=== PATIENT | male | born 1955 | race Caucasian/White ===

== ENCOUNTER → 2019-12-29 | Day surgery (SDC) | payer MEDICARE ==
[2019-12-27 12:01] VITALS: BMI 22.8
[~2019-12-29] MED LIST: LACTATED RINGERS 1,000 ML IV SCH; LIDOCAINE 1% (10MG/ML) FOR IV START INTRADERMA ONE; PROPOFOL 10 MG/ML 20 ML VIAL IV ONE
[2019-12-29 09:19] VITALS: TEMP 98.4
--- NOTE | 2019-12-29 11:22 | P.PCN ---
Date of Procedure: 12/29/19 Procedure(s) Performed: BRIEF HISTORY: Patient is a 64-year-old pleasant white male scheduled for an elective colonoscopy as a part of evaluation of chronic diarrhea for the last 1 year duration. Has bowel movements anywhere from 6-7 days and blood or mucus in the stool. PROCEDURE PERFORMED: Colonoscopy Random biopsies. PREOPERATIVE DIAGNOSIS:Chronic diarrhea of 1 year duration. IV sedation per Anesthesia. PROCEDURE: After informed consent was obtained, the patient, was brought into the endoscopy unit. IV sedation was administered by Anesthesia under continuous monitoring. Digital rectal examination was normal. Initially the Olympus CF-160 flexible video colonoscope was then inserted in the rectum, gradually advanced into the cecum without any difficulty. Careful examination was performed as the scope was gradually being withdrawn. Ileocecal valve and the appendiceal orifice were visualized and appeared normal. Prep wa fair. Mucosa of the cecum, ascending colon, transverse colon, descending colon, sigmoid colon, and rectum appeared normal. Retroflexion was performed in the rectum an a 2 internal hemorrhoids were seen. random biopsies were done from ascending and descending colon to rule out microscopic/collagenous colitis The patient tolerated the procedure well. IMPRESSION: Normal-appearing colon from rectum to cecum No evidence of colitis or colorectal neoplasia. Scattered sigmoid diverticulosis. Grade 2 internal hemorrhoids RECOMMENDATIONS: Findings of this examination were discussed with the patient as well as her family. He was advised to follow with the biopsy results. In the meantime he will continue with Bentyl daily 10 milligrams 3 times daily and he'll be seen in office in 6 weeks
[2019-12-29 11:25] VITALS: RESP 17
[2019-12-29 11:35] VITALS: BP 106/71; PULSE 75
== END ==
LOC: ORWHC2ENDO 08:57
PROVIDERS: ATTEND Internal Medicine Gastroenterology
DX: K64.1 Second degree hemorrhoids (principal); K57.30 Diverticulosis of large intestine without perforation or abscess without bleeding; K92.1 Melena; K58.9 Irritable bowel syndrome, unspecified; R29.810 Facial weakness; Z79.899 Other long term (current) drug therapy; F17.210 Nicotine dependence, cigarettes, uncomplicated; Z96.641 Presence of right artificial hip joint; Z98.890 Other specified postprocedural states
CPT/HCPCS: 88305; 45380; J2704

== ENCOUNTER → 2023-01-13 | Outpatient (CLI) | payer MEDICARE ==
--- NOTE | 2023-01-14 09:17 | MR ---
EXAMINATION TYPE: MR Prostate wo/w con DATE OF EXAM: 01/13/2023 9:37 AM COMPARISON: None. CLINICAL INDICATION:Male, 67 years old with history of R97.20 ELEVATED PSA; Elevated PSA. TECHNIQUE: Multi-planar, multi-sequence imaging of the pelvis is performed prior to and following the uncomplicated administration of bolus intravenous gadolinium. CONTRAST: 7 Gadavist Interpretive Criteria: PI-RADS v2.1 SERUM PSA: 5.5 on 12/08/2022. SURGICAL PATHOLOGY: No data available. FINDINGS: Prostatic dimensions: 5.2 x 6.4 x 3.7. cm. Ellipsoid Volume:64.47 (PSA density=0.09 ng/mL/mL) Limited evaluation of the right prostate gland secondary to susceptibility artifact. CENTRAL GLAND PERIPHERAL ZONE (PZ):(Central and Transition Zones/CZ+TZ): Multiple bilateral, heterogenous appearing hypertrophic stromal nodules, without suspicious lesion. M edian lobe hypertrophy with protrusion into the base of the bladder. (PI-RADS 2) PERIPHERAL ZONE (PZ): No evidence of masslike abnormality, or localized perfusional hypervascularity, to further suggest a focus of clinically significant prostate cancer. (PI-RADS 2) SEMINAL VESICLES (SV): Symmetric and unremarkable. PERIPROSTATIC TISSUES: Unremarkable. LYMPH NODES: No enlarged pelvic lymph node. REMAINING PELVIS: Scattered bladder diverticula are seen throughout the bladder hodge. Trabeculated bladder wall is als o present. No abnormal free or organized intrapelvic fluid collection. No pathologic bowel dilation or mural thickening. Colonic diverticula are present. No hernia visualized Right posterior lateral probable hemorrhoid. OSSEOUS STRUCTURES: Susceptibility from patient's right hip arthroplasty limits evaluation. No suspicious osseous abnormality. IMPRESSION: Limited evaluation secondary to right hip arthroplasty. 1. No specific features for high-risk prostate cancer. Maximum PI-RADS score: 2. 2. Moderate BPH, estimated gland volume 64.47 mL. 3. Trabeculated bladder wall with multiple bladder diverticulitis likely secondary to chronic bladder outlet obstruction from BPH. 4. Right posterior lateral probable hemorrhoid.
== END | disposition home or self-care (01) ==
LOC: RADMRIMAIN 08:04
PROVIDERS: ATTEND Urology
DX: N40.0 Benign prostatic hyperplasia without lower urinary tract symptoms (principal); N32.3 Diverticulum of bladder; N32.89 Other specified disorders of bladder; R97.20 Elevated prostate specific antigen [PSA]
CPT/HCPCS: 72197; A9585

== ENCOUNTER → 2024-11-08 | Outpatient (CLI) | payer MEDICARE ==
--- NOTE | 2024-11-08 11:30 | MR ---
EXAMINATION TYPE: MR brain wo/w con DATE OF EXAM: 11/08/2024 9:52 AM COMPARISON: None. CLINICAL INDICATION: Male, 69 years old with history of Q85.00 NEUROFIBROMATOSIS, Neurofibromatosis TECHNIQUE: Multi planar multi sequence imaging of the brain. CONTRAST: Patient received 6 mL intravenous Gadobutrol gadolinium contrast. Pre and post contrast en hanced images are obtained. FINDINGS: The ventricles, basal cisterns and sulci overlying the cerebral convexities are moderately enlarged. There is evidence of mild periventricular white matter ischemic demyelination. Remote deep white matter insults are also noted. No acute edema is seen on diffusion weighted imaging. There is no evidence for midline shift or mass effect. Acute intracranial hemorrhage or extra-axial collection is not evident. No enhancing lesions are seen. The paranasal sinuses and mastoid air cells are well-aerated. IMPRESSION: Age-related atrophic and chronic small vessel ischemic change. No acute intracranial process at this time. No enhancing lesions are seen. [facility], , 11/08/2024 11:27 AM
== END | disposition home or self-care (01) ==
LOC: RADMRIMAIN 08:42
PROVIDERS: ATTEND Psychiatry & Neurology Neurology
DX: I67.82 Cerebral ischemia (principal); Q85.00 Neurofibromatosis, unspecified; R26.81 Unsteadiness on feet; G31.1 Senile degeneration of brain, not elsewhere classified
CPT/HCPCS: 70553; A9585

== ENCOUNTER → 2024-11-08 | Outpatient (CLI) | payer MEDICARE | END | disposition home or self-care (01) | LOC: LABWHC1 10:04 | PROVIDERS: ATTEND Urology | DX: R97.20 Elevated prostate specific antigen [PSA] (principal) | CPT/HCPCS: 36415; 84153 ==